=== PATIENT | male | born 1960 | race Caucasian/White ===

== ENCOUNTER 2020-06-26 09:19 | Outpatient (CLI) | payer OTHER, SELFPAY | END 2020-06-26 09:20 | disposition home or self-care (01) | LOC: ANHCOVIDVC 09:19 | DX: Z23 Encounter for immunization (principal) | CPT/HCPCS: 0001A; 91300 ==

== ENCOUNTER 2020-07-17 09:20 | Outpatient (CLI) | payer OTHER, SELFPAY | END 2020-07-17 09:21 | disposition home or self-care (01) | LOC: ANHCOVIDVC 09:20 | DX: Z23 Encounter for immunization (principal) | CPT/HCPCS: 0002A; 91300 ==

== ENCOUNTER → 2021-04-09 07:41 | Outpatient (CLI) | payer OTHER, SELFPAY ==
[2021-04-09 19:47] LABS: SARS-CoV-2 RNA PCR Positive
== END ==
DX: U07.1 COVID-19 (principal)
CPT/HCPCS: C9803; U0003; U0005